=== PATIENT | female | born 1950 | race Caucasian/White ===

== ENCOUNTER 2022-07-15 12:48 | Inpatient (IN) | payer OTHER ==
[~2022-07-15] VITALS: Ht 154.9 cm; Wt 49.9 kg
[2022-07-23] MEDS ORDERED: ACETAMINOPHEN500 M2 PO (09:15)
[2022-07-23] MEDS ORDERED: NEURONTIN300 MG PO (09:15)
[2022-07-23] MEDS ORDERED: INTESTINEX680 M1 PO (09:19)
== END 2022-07-23 11:43 | disposition home or self-care (01) | DRG 331 ==
LOC: SURH 07-20 11:15 → O/R 07-20 11:32 → SURH 07-20 16:05
PROVIDERS: ADMIT Surgery; ATTEND Surgery
PROC: 0DBP4ZZ Excision of Rectum, Percutaneous Endoscopic Approach (ICD-10-PCS; 2022-07-20)
PROC: 07BB4ZZ Excision of Mesenteric Lymphatic, Percutaneous Endoscopic Approach (ICD-10-PCS; 2022-07-20)
PROC: 0DTN4ZZ Resection of Sigmoid Colon, Percutaneous Endoscopic Approach (ICD-10-PCS; principal; 2022-07-20 18:00)
DX: D12.5 Benign neoplasm of sigmoid colon (principal); K57.30 Diverticulosis of large intestine without perforation or abscess without bleeding; R59.0 Localized enlarged lymph nodes; Z85.048 Personal history of other malignant neoplasm of rectum, rectosigmoid junction, and anus